=== PATIENT | male | born 1940 | race Caucasian/White ===

== ENCOUNTER 2024-11-14 08:45 | Inpatient (IN) | payer MEDICARE, OTHER ==
[~2024-11-14] VITALS: Ht 182.9 cm; Wt 108.9 kg
[2024-11-14] VITALS (7 sets, daily range): BP systolic 104–120; BP diastolic 65–70; PULSE 73–76; RESP 18–19; TEMP 97.6–97.9; O2SAT 100
[~2024-11-14 08:45] MED LIST: ANTARA130 MG PO; ESIDRIX25 MG PO; GLIPIZIDE5 MG PO; LANTUS100 UNITS/ SQ; PRINIVIL20 MG PO; SIMVASTATIN20 MG PO; VIAGRA100 MG PO
[2024-11-14 09:32] LABS: BASOPHILS % 0.1 % (0.0-1.0); EOSINOPHILS % 0.1 % (0.0-6.0); HEMATOCRIT 28.6 % (38.2-49.6); HEMOGLOBIN 9.8 g/dL (14.0-18.0); LYMPHOCYTES # (AUTO) 0.8 (1.0-3.2); MEAN CORPUSCULAR HEMOGLOBIN 30.6 pg (28-32); MEAN CORPUSCULAR HGB CONC 34.3 g/dL (31-35); MEAN CORPUSCULAR VOLUME 89.4 fL (81-99); MONOCYTES # (AUTO) 0.5 (0.2-0.8); MONOCYTES % 6.6 % (4.4-11.3); NEUTROPHILS # (AUTO) 5.7 (2.1-6.9); NEUTROPHILS % 81.5 % (38.7-80.0); PLATELET COUNT 154 x10e3/uL (140-360); RED CELL DISTRIBUTION WIDTH 20.5 % (11.7-14.4); WHITE BLOOD COUNT 7.01 x10e3/uL (4.8-10.8)
[2024-11-14] MEDS: SODIUM CHLORIDE 0.9% 1000ML 250 ML IV STA (09:35)
[2024-11-14 09:59] LABS: ALBUMIN 2.7 g/dL (3.5-5.0); ALBUMIN/GLOBULIN RATIO 0.9 (0.8-2.0); ANION GAP 13.8 mmol/L (8-16); BILIRUBIN,TOTAL 2.1 mg/dL (0.2-1.2); CALCIUM 8.3 mg/dL (8.4-10.2); CREATININE, SERUM 2.61 mg/dL (0.72-1.25); POTASSIUM 4.8 mmol/L (3.5-5.1); TOTAL PROTEIN 5.7 g/dL (6.5-8.1)
[2024-11-14] MEDS: SODIUM CHLORIDE 0.9% 250ML 250 ML IV ONE (10:13)
[2024-11-14 10:15] LABS: TROPONIN I 0.084 ng/mL (0-0.300)
[2024-11-14] MEDS ORDERED: CARVEDILOL3.125 MG PO (11:39)
[2024-11-14] MEDS ORDERED: LASIX10 MG/ML PO (11:40)
[2024-11-14] MEDS ORDERED: DOXAZOSIN MESYLA2 MG PO (11:41)
[2024-11-14] MEDS ORDERED: ATORVASTATIN CA20 MG PO (11:41)
[2024-11-14] MEDS: ACETAMINOPHEN 325 MG TAB PO ONE (13:19)
[2024-11-14] MEDS ORDERED: HYDRALAZINE HCL 20 MG/ML VIAL IV PRN (13:45)
[2024-11-14] MEDS ORDERED: ALBUTEROL/IPRATROPIUM 3 ML NEB NEB PRN (13:45)
[2024-11-14] MEDS ORDERED: SIMETHICONE 80 MG CHEW PO PRN (13:45)
[2024-11-14] MEDS ORDERED: LIDOCAINE 4% PATCH TP PRN (13:45)
[2024-11-14] MEDS ORDERED: POTASSIUM CHLORIDE 20 MEQ TAB CR PO PRN (13:45)
[2024-11-14] MEDS ORDERED: DIPHENHYDRAMINE HCL 25 MG CAP PO PRN (13:45)
[2024-11-14] MEDS ORDERED: DOCUSATE SODIUM 100 MG CAP PO PRN (13:45)
[2024-11-14] MEDS ORDERED: ONDANSETRON HCL INJ 2MG/ML 2ML 2 MG/ML VIAL IV PRN (13:45)
[2024-11-14] MEDS ORDERED: DEXTROSE 50% SYRINGE 50 ML IV PRN ×2 (13:45→15:15)
[2024-11-14] MEDS: INSULIN LISPRO 100 UNIT/1 ML 3ML VIAL SQ SCH (16:30)
[2024-11-14] MEDS ORDERED: ASPIRIN81 MG PO (17:00)
[2024-11-14] MEDS ORDERED: CYMBALTA20 MG PO (17:00)
[2024-11-14] MEDS ORDERED: ENOXAPARIN SOD INJ 40 MG/0.4 ML SYR SC SCH (17:00)
[2024-11-14] MEDS ORDERED: WIXELA 250-501 EACH (17:00)
[2024-11-14] MEDS: FUROSEMIDE INJ 10 MG/ML 4 ML VIAL IV SCH (17:15)
[2024-11-14] MEDS: ENOXAPARIN 30 MG/0.3 ML SYR SC SCH (17:15)
[2024-11-14] MEDS: ACETAMINOPHEN 325 MG TAB PO PRN (18:49)
[2024-11-14] MEDS: ATORVASTATIN 20 MG TAB PO SCH (21:21)
[2024-11-15] VITALS (10 sets, daily range): BP systolic 113–131; BP diastolic 52–73; PULSE 70–87; RESP 18–20; TEMP 97.5–97.9; O2SAT 97–100
[2024-11-15 05:26] LABS: BASOPHILS % 0.1 % (0.0-1.0); HEMATOCRIT 28.4 % (38.2-49.6); HEMOGLOBIN 9.6 g/dL (14.0-18.0); LYMPHOCYTES # (AUTO) 0.9 (1.0-3.2); LYMPHOCYTES % 12.9 % (18.0-39.1); MEAN CORPUSCULAR HEMOGLOBIN 30.3 pg (28-32); MEAN CORPUSCULAR HGB CONC 33.8 g/dL (31-35); MEAN CORPUSCULAR VOLUME 89.6 fL (81-99); MONOCYTES # (AUTO) 0.7 (0.2-0.8); MONOCYTES % 9.4 % (4.4-11.3); NEUTROPHILS # (AUTO) 5.6 (2.1-6.9); NEUTROPHILS % 76.8 % (38.7-80.0); PLATELET COUNT 138 x10e3/uL (140-360); RED BLOOD COUNT 3.17 x10e6/uL (4.3-5.7); RED CELL DISTRIBUTION WIDTH 20.4 % (11.7-14.4); WHITE BLOOD COUNT 7.27 x10e3/uL (4.8-10.8)
[2024-11-15 05:47] LABS: ALBUMIN 2.6 g/dL (3.5-5.0); ALBUMIN/GLOBULIN RATIO 0.9 (0.8-2.0); ANION GAP 17.7 mmol/L (8-16); BILIRUBIN,TOTAL 2.8 mg/dL (0.2-1.2); CALCIUM 8.2 mg/dL (8.4-10.2); CREATININE, SERUM 2.5 mg/dL (0.72-1.25); POTASSIUM 4.7 mmol/L (3.5-5.1); TOTAL PROTEIN 5.5 g/dL (6.5-8.1)
[2024-11-15 06:04] LABS: CHOL/HDL RATIO 3.8 (3.9-4.7); MAGNESIUM 2.5 MG/DL (1.3-2.1); PHOSPHORUS 4.3 MG/DL (2.3-4.7)
[2024-11-15 06:24] LABS: THYROID STIMULATING HORMONE 3.214 uIU/mL (0.350-4.940)
[2024-11-15] MEDS: PANTOPRAZOLE SOD 40 MG TABEC PO SCH (09:55)
[2024-11-15] MEDS: ASPIRIN 81 MG ENTERIC COATED PO SCH (09:55)
[2024-11-15] MEDS: SODIUM CHLORIDE 0.9% 1000ML 1,000 ML IV ONE (12:40)
[2024-11-15] MEDS: ALBUMIN 5% 0.05 GM/ML BTL IV ONE (12:41)
[2024-11-15] MEDS ORDERED: CARVEDILOL 3.125 MG TAB PO SCH (17:00)
[2024-11-15] MEDS: ENOXAPARIN SOD INJ 60 MG/0.6 ML SYR SC SCH (17:30)
[2024-11-15 19:29] LABS: CREATININE,URINE RANDOM 145.29 mg/dL (63-166); TOTAL PROTEIN, URINE 89.4 mg/dL (1-14)
[2024-11-15] MEDS: CARVEDILOL 3.125 MG TAB PO SCH (20:40)
[2024-11-16] VITALS (12 sets, daily range): BP systolic 93–130; BP diastolic 56–85; PULSE 74–87; RESP 17–20; TEMP 97.5–98.1; O2SAT 81–100
[2024-11-16 05:21] LABS: BASOPHILS % 0.1 % (0.0-1.0); HEMOGLOBIN 9.5 g/dL (14.0-18.0); LYMPHOCYTES # (AUTO) 0.8 (1.0-3.2); LYMPHOCYTES % 9.3 % (18.0-39.1); MEAN CORPUSCULAR HEMOGLOBIN 30.5 pg (28-32); MEAN CORPUSCULAR HGB CONC 33.9 g/dL (31-35); MONOCYTES # (AUTO) 0.7 (0.2-0.8); MONOCYTES % 7.4 % (4.4-11.3); NEUTROPHILS # (AUTO) 7.4 (2.1-6.9); NEUTROPHILS % 82.8 % (38.7-80.0); PLATELET COUNT 125 x10e3/uL (140-360); RED BLOOD COUNT 3.11 x10e6/uL (4.3-5.7); RED CELL DISTRIBUTION WIDTH 20.9 % (11.7-14.4); WHITE BLOOD COUNT 8.95 x10e3/uL (4.8-10.8)
[2024-11-16 05:54] LABS: ALBUMIN 2.7 g/dL (3.5-5.0); ALBUMIN/GLOBULIN RATIO 0.9 (0.8-2.0); BILIRUBIN,TOTAL 3.7 mg/dL (0.2-1.2); CALCIUM 8.1 mg/dL (8.4-10.2); CREATININE, SERUM 3.02 mg/dL (0.72-1.25); TOTAL PROTEIN 5.7 g/dL (6.5-8.1)
[2024-11-16] MEDS ORDERED: FUROSEMIDE INJ 10 MG/ML 10 ML VIAL IV ONE (10:45)
[2024-11-16 12:18] LABS: INR 1.76; PROTHROMBIN TIME 21.5 seconds (11.9-14.5)
[2024-11-16] MEDS ORDERED: LIDOCAINE HCL 1% 30ML-PF VIAL ONE (12:26)
[2024-11-16] MEDS: BUMETANIDE INJ 0.25MG/ML 4ML VIAL IV ONE (14:15)
[2024-11-16 15:31] LABS: ANION GAP 22.5 mmol/L (8-16); CALCIUM 8.1 mg/dL (8.4-10.2); CREATININE, SERUM 3.19 mg/dL (0.72-1.25)
[2024-11-16 15:34] LABS: POTASSIUM 5.5 mmol/L (3.5-5.1)
[2024-11-16] MEDS: BUDESONIDE 0.25 MG/2 ML NEB NEB SCH (16:16)
[2024-11-16] MEDS: LEVALBUTEROL HCL SOLN NEBU 1.25 MG/3 ML NEB INH SCH (16:16)
[2024-11-16] MEDS: LACTULOSE SYRUP 20 GM/30 ML UDC PO SCH (16:30)
[2024-11-16] MEDS: LIDOCAINE 4% PATCH TP SCH (16:31)
[2024-11-16] MEDS: METOLAZONE 5 MG TAB PO ONE (16:31)
[2024-11-16] MEDS: SOD POLYSTYRENE SULFONATE SUSP 15 GM/60 ML BTL PO ONE (16:32)
[2024-11-16] MEDS: SODIUM BICARBONATE 8.4% INJ 50 ML SYR IV STA (16:32)
[2024-11-16] MEDS: BUMETANIDE 10 MG in SODIUM CHLORIDE 0.9% 60 ML IV SCH (16:33)
[2024-11-16] MEDS: SODIUM CHLORIDE 0.9% 1000ML 1,000 ML ONE (17:45)
[2024-11-16] MEDS: METHYLPREDNISOLONE SOD SUCC 40 MG/ML VIAL 1ML IV SCH (20:44)
[2024-11-16] MEDS ORDERED: BUMETANIDE INJ 0.25MG/ML 4ML VIAL IV SCH (22:00)
[2024-11-17] VITALS (36 sets, daily range): BP systolic 85–131; BP diastolic 37–107; PULSE 60–104; RESP 15–26; TEMP 97.3–98.6; O2SAT 92–100
[2024-11-17 00:42] LABS: ANION GAP 20.7 mmol/L (8-16); CALCIUM 7.8 mg/dL (8.4-10.2); CREATININE, SERUM 3.45 mg/dL (0.72-1.25); POTASSIUM 4.7 mmol/L (3.5-5.1)
[2024-11-17 00:44] LABS: % IRON SATURATION 15 % (15-50); IRON 56 ug/dL (65-175); TOTAL IRON BINDING CAPACITY 385 ug/dL (261-478); TRANSFERRIN 275 mg/dL (174-364)
[2024-11-17 01:21] LABS: FOLATE 12.3 ng/mL (7.0-15.4)
[2024-11-17 06:34] LABS: EOSINOPHILS % 0.1 % (0.0-6.0); HEMATOCRIT 26.7 % (38.2-49.6); HEMOGLOBIN 8.9 g/dL (14.0-18.0); LYMPHOCYTES # (AUTO) 0.3 (1.0-3.2); MEAN CORPUSCULAR HEMOGLOBIN 30.2 pg (28-32); MEAN CORPUSCULAR HGB CONC 33.3 g/dL (31-35); MEAN CORPUSCULAR VOLUME 90.5 fL (81-99); MONOCYTES # (AUTO) 0.4 (0.2-0.8); MONOCYTES % 5.1 % (4.4-11.3); NEUTROPHILS # (AUTO) 7.2 (2.1-6.9); PLATELET COUNT 94 x10e3/uL (140-360); RED BLOOD COUNT 2.95 x10e6/uL (4.3-5.7); RED CELL DISTRIBUTION WIDTH 20.7 % (11.7-14.4); WHITE BLOOD COUNT 7.97 x10e3/uL (4.8-10.8)
[2024-11-17 07:10] LABS: ANION GAP 19.3 mmol/L (8-16); BILIRUBIN,TOTAL 5.2 mg/dL (0.2-1.2); CALCIUM 7.9 mg/dL (8.4-10.2); CREATININE, SERUM 3.78 mg/dL (0.72-1.25); TOTAL PROTEIN 5.7 g/dL (6.5-8.1)
[2024-11-17 07:11] LABS: POTASSIUM 5.3 mmol/L (3.5-5.1)
[2024-11-17 07:27] LABS: ALBUMIN 2.8 g/dL (3.5-5.0)
[2024-11-17] MEDS: DEXTROSE 50% SYRINGE 50 ML IV ONE (08:32)
[2024-11-17] MEDS: INSULIN REGULAR, HUMAN 100 UNIT/1 ML IV ONE (08:33)
[2024-11-17 11:45] LABS: ANION GAP 18.9 mmol/L (8-16); CALCIUM 7.7 mg/dL (8.4-10.2); CREATININE, SERUM 3.76 mg/dL (0.72-1.25); POTASSIUM 4.9 mmol/L (3.5-5.1)
[2024-11-17] MEDS ORDERED: HEPARIN SOD (PORCINE) 1000 UNIT/ML SDV ONE (18:46)
[2024-11-17] MEDS ORDERED: MANNITOL 25% 12.5GM/50ML 100 ML ONE (18:46)
[2024-11-17] MEDS ORDERED: SODIUM CHLORIDE 0.9% 1000ML 1,000 ML ONE (18:47)
[2024-11-17] MEDS: MELATONIN 5 MG TABLET PO PRN (21:54)
[2024-11-17] MEDS: BENZONATATE 100 MG CAP PO PRN (21:55)
[2024-11-18] VITALS: BP 92/58; PULSE 98; RESP 19; TEMP 97.1; O2SAT 100
[2024-11-18 00:30] VITALS: BP 55/29; PULSE 65; RESP 12; O2SAT 100
[2024-11-18 00:54] VITALS: BP 0/0; PULSE 0; RESP 0; O2SAT 0
[2024-11-18] MEDS ORDERED: ENOXAPARIN SOD INJ 60 MG/0.6 ML SYR SC SCH (09:00)
[2024-11-18] MEDS ORDERED: IRON SUCROSE 100 MG in SODIUM CHLORIDE 0.9% 100 ML IV SCH (09:00)
[2024-11-20 10:31] LABS: HEPATITIS A ANTIBODY IGM (P) Negative; HEPATITIS B CORE IGM (P) Negative; HEPATITIS B SURFACE AG (P) Negative; HEPATITIS C ANTIBODY Non Reactive
== END 2024-11-18 00:54 | disposition expired | DRG 291 ==
LOC: ER 08:55 → ERHOLD 12:53 → MED/SURG 14:19 → ICU 11-16 23:37
PROVIDERS: ADMIT Internal Medicine; ATTEND Internal Medicine
PROC: 05HM33Z Insertion of Infusion Device into Right Internal Jugular Vein, Percutaneous Approach (ICD-10-PCS; principal; 2024-11-17)
PROC: B543ZZA Ultrasonography of Right Jugular Veins, Guidance (ICD-10-PCS; 2024-11-17)
PROC: 5A1D70Z Performance of Urinary Filtration, Intermittent, Less than 6 Hours Per Day (ICD-10-PCS; 2024-11-18)
DX: I13.0 Hypertensive heart and chronic kidney disease with heart failure and stage 1 through stage 4 chronic kidney disease, or unspecified chronic kidney disease (principal); I50.43 Acute on chronic combined systolic (congestive) and diastolic (congestive) heart failure; K76.7 Hepatorenal syndrome; J96.00 Acute respiratory failure, unspecified whether with hypoxia or hypercapnia; N17.0 Acute kidney failure with tubular necrosis; S22.43XA Multiple fractures of ribs, bilateral, initial encounter for closed fracture; R18.8 Other ascites; I46.9 Cardiac arrest, cause unspecified; I95.9 Hypotension, unspecified; I48.91 Unspecified atrial fibrillation; N18.30 Chronic kidney disease, stage 3 unspecified; I49.1 Atrial premature depolarization; E78.5 Hyperlipidemia, unspecified; E11.22 Type 2 diabetes mellitus with diabetic chronic kidney disease; Z79.4 Long term (current) use of insulin; R29.6 Repeated falls; Z79.84 Long term (current) use of oral hypoglycemic drugs; I25.10 Atherosclerotic heart disease of native coronary artery without angina pectoris; Z95.1 Presence of aortocoronary bypass graft; K74.60 Unspecified cirrhosis of liver; E86.0 Dehydration; E87.5 Hyperkalemia; Z66 Do not resuscitate; Z87.891 Personal history of nicotine dependence; I08.3 Combined rheumatic disorders of mitral, aortic and tricuspid valves; M19.91 Primary osteoarthritis, unspecified site; K43.2 Incisional hernia without obstruction or gangrene; K80.20 Calculus of gallbladder without cholecystitis without obstruction; K57.30 Diverticulosis of large intestine without perforation or abscess without bleeding; R26.9 Unspecified abnormalities of gait and mobility; Z85.46 Personal history of malignant neoplasm of prostate; Z85.038 Personal history of other malignant neoplasm of large intestine; Z90.49 Acquired absence of other specified parts of digestive tract; Z85.828 Personal history of other malignant neoplasm of skin; Z92.3 Personal history of irradiation; Z92.21 Personal history of antineoplastic chemotherapy; W01.198A Fall on same level from slipping, tripping and stumbling with subsequent striking against other object, initial encounter; Y92.009 Unspecified place in unspecified non-institutional (private) residence as the place of occurrence of the external cause; Z79.899 Other long term (current) drug therapy
CPT/HCPCS: 36415; 70450; 71045; 71046; 71250; 74176; 76604; 76770; 80048; 80053; 80061; 82550; 82570; 82607; 82746; 82948; 83036; 83540; 83735; 83880; 84100; 84156; 84300; 84443; 84466; 84484; 84550; 85025; 85045; 85610; 87086; 87186; 93005; 93306; 93880; 93970; 94760; 94799; 99285; J0696; J1644; J1650; J1940; J2003; J2150; J2470; J2919; J7030; J7050; J7799